=== PATIENT | female | born 1970 | race Caucasian/White ===

== ENCOUNTER → 2018-08-16 | Outpatient (CLI) | payer OTHER ==
[2012-10-31 16:45] VITALS: BP 123/44
[~2018-08-16] MED LIST: AMITRIPTYLINE25 MG PO; BYSTOLIC5 MG PO; DILTIAZEM120 MG PO
[2018-08-16 10:15] LABS: EOS # 0.1 (0.04-0.40); EOS % 1.6 % (1.0-5.0); HEMATOCRIT 43.5 % (37.0-47.0); HEMOGLOBIN 14.3 g/dL (12.5-16.0); LYMPH# 1.9 (1.50-4.00); MEAN CELL VOLUME 92 fl (78-100); MEAN CORPUSCULAR HEMOGLOBIN 30 pg (27-31); MEAN CORPUSCULAR HGB CONC 33 g/dL (33-37); MEAN PLATELET VOLUME 9.9 fl (7.4-10.4); MONO # 0.6 (0.20-0.80); NEU # 4.5 (1.40-6.50); PLATELET COUNT 289 K/mm3 (130-400); RED BLOOD COUNT 4.75 M/mm3 (4.10-5.30); RED CELL DISTRIBUTION WIDTH 12.6 % (11.5-14.5); WHITE BLOOD COUNT 7.1 K/mm3 (4.8-10.8)
[2018-08-16 10:23] LABS: ALBUMIN 4.5 g/dL (3.5-5.0); POTASSIUM 4.2 mmol/L (3.5-5.1)
[2018-08-16 10:24] LABS: CALCIUM 10.3 mg/dL (8.3-10.5)
[2018-08-16 10:25] LABS: TOTAL PROTEIN 8.2 g/dL (6.4-8.3)
[2018-08-16 10:27] LABS: TOTAL BILIRUBIN 0.6 mg/dL (0.2-1.2)
== END ==
LOC: LAB 10:06
PROVIDERS: Family Medicine
DX: Z01.419 Encounter for gynecological examination (general) (routine) without abnormal findings (principal); E78.5 Hyperlipidemia, unspecified

== ENCOUNTER → 2019-06-22 | Outpatient (CLI) | payer BC ==
[2012-10-31 16:45] VITALS: BP 123/44
== END ==
LOC: MAMMO 06-21 11:30
DX: Z12.31 Encounter for screening mammogram for malignant neoplasm of breast (principal)

== ENCOUNTER → 2020-01-04 | Outpatient (CLI) | payer BC ==
[2012-10-31 16:45] VITALS: BP 123/44
== END ==
LOC: LAB 13:40
DX: R05 Cough (principal); R06.02 Shortness of breath; R09.81 Nasal congestion; R53.83 Other fatigue; Z20.828 Contact with and (suspected) exposure to other viral communicable diseases

== ENCOUNTER → 2020-04-24 | Outpatient (CLI) | payer BC ==
[2012-10-31 16:45] VITALS: BP 123/44
[2020-04-24 11:29] LABS: EOS # 0.1 (0.04-0.40); EOS % 1.5 % (1.0-5.0); HEMATOCRIT 40.7 % (37.0-47.0); HEMOGLOBIN 13.3 g/dL (12.5-16.0); LYMPH# 2.2 (1.50-4.00); MEAN CELL VOLUME 93 fl (78-100); MEAN CORPUSCULAR HEMOGLOBIN 30 pg (27-31); MEAN CORPUSCULAR HGB CONC 33 g/dL (33-37); MEAN PLATELET VOLUME 10.3 fl (7.4-10.4); MONO # 0.5 (0.20-0.80); NEU # 3.7 (1.40-6.50); PLATELET COUNT 272 K/mm3 (130-400); RED BLOOD COUNT 4.38 M/mm3 (4.10-5.30); RED CELL DISTRIBUTION WIDTH 12.4 % (11.5-14.5); WHITE BLOOD COUNT 6.5 K/mm3 (4.8-10.8)
[2020-04-24 18:17] LABS: POTASSIUM 4.3 mmol/L (3.5-5.1)
[2020-04-24 18:18] LABS: ALBUMIN 4.5 g/dL (3.5-5.0)
[2020-04-24 18:19] LABS: CALCIUM 9.9 mg/dL (8.3-10.5)
[2020-04-24 18:20] LABS: TOTAL PROTEIN 7.8 g/dL (6.4-8.3)
[2020-04-24 18:22] LABS: TOTAL BILIRUBIN 0.3 mg/dL (0.2-1.2)
[2020-04-24 21:43] LABS: FOLLICLE STIMULATING HORMONE 67.5 mIU/mL (()); LUTENIZING HORMONE 30.1 mIU/mL (()); PROGESTERONE <0.1 ng/mL (())
[2020-04-29 15:40] LABS: ESTRONE (E1) LEVEL 14 pg/mL (())
== END ==
LOC: LAB 11:15
PROVIDERS: Family Medicine
DX: Z00.00 Encounter for general adult medical examination without abnormal findings (principal); E78.5 Hyperlipidemia, unspecified; E55.9 Vitamin D deficiency, unspecified; N95.9 Unspecified menopausal and perimenopausal disorder

== ENCOUNTER → 2020-08-13 | Outpatient (CLI) | payer BC | LOC: MAMMO 12:54 | DX: Z12.31 Encounter for screening mammogram for malignant neoplasm of breast (principal) ==

== ENCOUNTER → 2021-03-10 | Outpatient (CLI) | payer BC | LOC: LAB 12:03 | DX: U07.1 COVID-19 (principal) ==

== ENCOUNTER → 2021-08-13 | Outpatient (CLI) | payer BC ==
[2021-08-13 10:40] LABS: BASO # 0.04 K/mm3 (0.02-0.10); EOS # 0.11 K/mm3 (0.04-0.40); EOS % 2.1 % (1.0-5.0); HEMATOCRIT 39.6 % (37.0-47.0); HEMOGLOBIN 13.2 g/dL (12.5-16.0); LYMPH# 2.15 K/mm3 (1.50-4.00); MEAN CELL VOLUME 91 fl (78-100); MEAN CORPUSCULAR HEMOGLOBIN 30 pg (27-31); MEAN CORPUSCULAR HGB CONC 33 g/dL (33-37); NEU # 2.62 K/mm3 (1.40-6.50); PLATELET COUNT 260 K/mm3 (130-400); RED BLOOD COUNT 4.34 M/mm3 (4.10-5.30); RED CELL DISTRIBUTION WIDTH 11.8 % (11.5-14.5); WHITE BLOOD COUNT 5.3 K/mm3 (4.8-10.8)
[2021-08-13 10:47] LABS: POTASSIUM 3.9 mmol/L (3.5-5.1)
[2021-08-13 10:48] LABS: ALBUMIN 4.5 g/dL (3.5-5.0)
[2021-08-13 10:49] LABS: CALCIUM 9.7 mg/dL (8.3-10.5)
[2021-08-13 10:52] LABS: TOTAL BILIRUBIN 0.4 mg/dL (0.2-1.2)
== END ==
LOC: MAMMO 09:54
PROVIDERS: Family Medicine
DX: Z12.31 Encounter for screening mammogram for malignant neoplasm of breast (principal); Z00.00 Encounter for general adult medical examination without abnormal findings; Z12.11 Encounter for screening for malignant neoplasm of colon; E78.5 Hyperlipidemia, unspecified; I47.1 Supraventricular tachycardia; E66.3 Overweight

== ENCOUNTER → 2023-08-25 | Outpatient (CLI) | payer BC ==
[~2023-08-25] MED LIST changes: +ZOFRAN ODT4 MG PO
== END ==
LOC: MAMMO 09:55
DX: Z12.31 Encounter for screening mammogram for malignant neoplasm of breast (principal)

== ENCOUNTER → 2023-11-03 | Outpatient (CLI) | payer BC ==
[2023-11-04 00:32] LABS: T3 FREE 2.8 pg/mL (1.7-3.7)
== END ==
LOC: LAB 12:27
PROVIDERS: Nurse Practitioner
DX: E03.9 Hypothyroidism, unspecified (principal)